=== PATIENT | female | born 1935 ===

== ENCOUNTER 2018-05-06 08:32 | Emergency (ER) | payer OTHER ==
[~2018-05-06] VITALS: Ht 170.2 cm; Wt 68.0 kg
== END 2018-05-06 11:48 | disposition home or self-care (01) ==
LOC: ER 08:32
DX: R42 Dizziness and giddiness (principal); T39.395A Adverse effect of other nonsteroidal anti-inflammatory drugs [NSAID], initial encounter

== ENCOUNTER 2018-05-18 08:31 | Emergency (ER) | payer OTHER ==
[~2018-05-18] VITALS: Ht 170.2 cm; Wt 67.1 kg
[2018-05-18] MEDS ORDERED: DICLOFENAC SODI50 MG PO (09:29)
== END 2018-05-18 09:38 | disposition home or self-care (01) ==
LOC: ER 08:31
DX: M79.651 Pain in right thigh (principal)